=== PATIENT | female | born 2000 | race Caucasian/White ===

== ENCOUNTER 2019-04-25 01:14 | Emergency (ER) | payer MEDICAID ==
[~2019-04-25] VITALS: Ht 162.6 cm; Wt 77.1 kg
--- NOTE | 2019-04-25 01:15 | NUR ---
ED Nurse Note: Sherrill requested.
--- NOTE | 2019-04-25 01:15 | NUR ---
ED Nurse Note: Pt JOSEPHINEA RA 27 from home c/o SI and ETOH abuse. Per EMS, pt drank 20 shots of Whiskey, 10 pills of Motrin, superficial cuts on bilateral wrists around 0000. Pt is AO x 4times, VSS, on room air no distress, current crying. KAPIL seen Pt at bedside.
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
[2019-04-25] MEDS ORDERED: LORazepam Inj 2mg/ml 1ml IV ONE (01:30)
[2019-04-25] MEDS ORDERED: Neosporin Oint Ud Pkt TOPIC ONE (01:30)
--- NOTE | 2019-04-25 01:30 | NUR ---
ED Nurse Note: Urine and blood sample sent to lab.
[2019-04-25 01:36] LABS: BASOPHILS % (AUTO) 2.1 % (0.0-2.0); EOSINOPHILS % (AUTO) 1.4 % (0.0-3.0); HEMATOCRIT 45.9 % (37.0-47.0); HEMOGLOBIN 15.8 G/DL (12.0-16.0); LYMPHOCYTES % (AUTO) 29.5 % (20.0-45.0); MEAN CORPUSCULAR VOLUME 85 FL (80-99); MONOCYTES % (AUTO) 5.5 % (1.0-10.0); NEUTROPHILS % (AUTO) 61.5 % (45.0-75.0); PLATELET COUNT 360 K/UL (150-450); RED CELL DISTRIBUTION WIDTH 12.5 % (11.6-14.8)
--- NOTE | 2019-04-25 01:42 | NUR ---
ED Nurse Note: Belongings locked in locker #1.
--- NOTE | 2019-04-25 01:47 | NUR ---
ED Nurse Note: [employer] placed Pt on 5150 hold.
[2019-04-25 01:48] VITALS: BP 120/80
[2019-04-25 01:48] LABS: ANION GAP 9 mmol/L (5-15); BLOOD UREA NITROGEN 8 mg/dL (7-18); CALCIUM 9.2 MG/DL (8.5-10.1); CARBON DIOXIDE 25 MMOL/L (21-32); CHLORIDE 107 MMOL/L (98-107); CREATININE 0.6 MG/DL (0.55-1.30); POTASSIUM 3.7 MMOL/L (3.5-5.1); SODIUM 141 MMOL/L (136-145)
[2019-04-25 01:50] LABS: APPEARANCE,URINE CLEAR; BILIRUBIN, URINE NEGATIVE (NEGATIVE); COLOR,URINE PALE YELLOW; GLUCOSE, URINE (UA) NEGATIVE (NEGATIVE); KETONES,URINE NEGATIVE (NEGATIVE); LEUKOCYTE ESTERASE ,URINE NEGATIVE (NEGATIVE); NITRITE,URINE NEGATIVE (NEGATIVE); PH,URINE 7 (4.5-8.0); PROTEIN,URINE NEGATIVE (NEGATIVE); UROBILINOGEN,URINE NORMAL MG/DL (0.0-1.0)
[2019-04-25 01:52] LABS: ALANINE AMINOTRANSFERASE 81 U/L (12-78); ALBUMIN 3.9 G/DL (3.4-5.0); ALBUMIN/GLOBULIN RATIO 0.9 (1.0-2.7); ALKALINE PHOSPHATASE 120 U/L (46-116); ASPARTATE AMINO TRANSFERASE 45 U/L (15-37); BILIRUBIN,TOTAL 0.3 MG/DL (0.2-1.0)
--- NOTE | 2019-04-25 02:31 | NUR ---
ED Nurse Note: Boy friend Len: [phone]
[2019-04-25 03:46] VITALS: BP 132/78
--- NOTE | 2019-04-25 03:47 | NUR ---
ED Nurse Note: Pt asleep when visited, VSS.
--- NOTE | 2019-04-25 05:23 | NUR ---
ED Nurse Note: Pt condition report to [facility].
--- NOTE | 2019-04-25 05:51 | NUR ---
ED Nurse Note: Spoke with Tim at [facility] and confirmed that he noted the initial blood alcohol and that the repeat came down to 110 - he is ok receiving the patient.
[2019-04-25 06:01] VITALS: BP 113/58
--- NOTE | 2019-04-25 06:24 | NUR ---
ED Nurse Note: Report given to [facility] RN Karissa.
--- NOTE | 2019-04-25 07:20 | NUR ---
ED Nurse Note: Received report from offgoing nurse. Patient is alert and oriented x4, verbally responsive. No intention of suicidal ideation/ homicidal ideation as stated. Breathing even and unlabored. No SOB. Will continue to monitor. Addendum: 04/25/19 at 0805 by ROZ . ED Nurse Note: Noa Mccartney was at the bedside since 7:10
[2019-04-25 07:36] VITALS: BP 122/59
[2019-04-25 07:56] VITALS: BP 122/59
--- NOTE | 2019-04-25 07:56 | NUR ---
ED Nurse Note: Pt cleared by ERMD for discharge to [facility]. DC instructions/ report given to Tobias from [facility]. All medical deviecs such as ID band and IV line removed. Kerliz dressing changed to bandaid for safety purposes. No suicidal and homicidal ideation as verbalized. Pt is AAO x4, verbally responsive. Picked up by [facility] via gurney accompanied by 2 EMT.
--- NOTE | 2019-04-25 08:00 | NUR ---
ED Nurse Note: D/C ORDER FOR SITTER AT THE BEDSIDE. PT. TRANSFERRED TO PSYCH UNIT
== END 2019-04-25 07:56 ==
LOC: EDBD 01:14 → EMR 02:57
DX: R45.851 Suicidal ideations (principal); S60.812A Abrasion of left wrist, initial encounter; S60.811A Abrasion of right wrist, initial encounter; X78.8XXA Intentional self-harm by other sharp object, initial encounter; Y92.9 Unspecified place or not applicable; F10.920 Alcohol use, unspecified with intoxication, uncomplicated; F32.9 Major depressive disorder, single episode, unspecified
CPT/HCPCS: 36415; 80053; 80307; 80329; 81003; 81025; 85025; 96361; 96374; 99285